=== PATIENT | female | born 1970 | race American Indian/Alaskan Native ===

== ENCOUNTER 2017-07-30 16:28 | Emergency (ER) | payer MEDICAID, OTHER ==
[2017-07-30 16:46] VITALS: BP 129/83
--- NOTE | 2017-07-30 16:46 | EDM.PDOC ---
ED HPI GENERAL MEDICAL PROBLEM - General Chief Complaint: Upper Extremity Injury/Pain Stated Complaint: INJURY VIA [facility] Time Seen by Provider: 07/30/17 16:30 Source of Information: Reports: Patient, EMS History Limitations: Reports: No Limitations - History of Present Illness INITIAL COMMENTS - FREE TEXT/NARRATIVE: 46-year-old female who was wrestling around with her daughter, fell forward onto her left shoulder and struck the left side of her face on the floor. She has significant pain in the shoulder and pain with movement so called the ambulance. She received 1.75 mg of Dilaudid in route per EMS. Onset: Sudden Duration: Hour(s): (Within the last 2 hours) Location: Reports: Upper Extremity, Left Severity: Moderate Worsens with: Reports: Movement Associated Symptoms: Reports: No Other Symptoms Left Shoulder Pain Score (Numeric/FACES): 5 - Related Data Allergies Allergy/AdvReac Type Severity Reaction Status Date / Time codeine Allergy Pain Verified 12/26/14 18:08 Home Meds: Home Meds Gabapentin [Gabapentin] 1 tab PO TID 12/26/14 [History] traMADol HCl [Tramadol HCl] 1 tab PO Q6H PRN 12/26/14 [History] Buprenorphine HCl/Naloxone HCl [Suboxone 12 mg-3 mg Sl Film] 07/30/17 [History] ClonazePAM [KlonoPIN] 0.5 mg PO ASDIRECTED PRN 07/30/17 [History] Past Medical History [employer] WORK[employer] History: Reports: Psychiatric History: Reports: Anxiety Social & Family History - Tobacco Use Smoking Status *Q: Unknown Ever Smoked Years of Tobacco use: 30 - Caffeine Use Caffeine Use: Reports: Coffee - Recreational Drug Use Recreational Drug Use: Yes Recreational Drug Type: Reports: Marijuana/Hashish Recreational Drug Use Frequency: Socially Recreational Drug Last Use: 12/26/15 Review of Systems - Review of Systems Review Of Systems: See Below Constitutional: Denies: Fever Respiratory: Denies: Shortness of Breath Cardiovascular: Denies: Chest Pain (She's been drinking) Skin: Denies: Bruising Neurological: Denies: Paresthesia ED EXAM, GENERAL - Physical Exam Exam: See Below Exam Limited By: No Limitations General Appearance: Alert, No Apparent Distress, Other (Intoxicated) Neck: Supple Respiratory/Chest: No Respiratory Distress, Lungs Clear Extremities: Other (Exam is otherwise limited to the extremities. The left clavicle has some tenderness to palpation laterally but no crepitus or deformity. Shoulder moves freely passively with some discomfort. It is not dislocated. Elbow and wrist is nontender.) Course - Vital Signs Last Recorded V/S: Last Vital Signs Temp 97.7 F 07/30/17 16:37 Pulse 90 07/30/17 16:37 Resp 18 07/30/17 16:37 BP 129/83 07/30/17 16:37 Pulse Ox 94 L 07/30/17 16:37 - Orders/Labs/Meds Orders: Active Orders 24 hr Category Date Time Status Humerus Lt [CR] Stat Exams 07/30/17 16:33 Taken Shoulder Comp Lt [CR] Stat Exams 07/30/17 16:33 Taken DME for Discharge [COMM] Stat Oth 07/30/17 17:04 Ordered - Re-Assessments/Exams Free Text/Narrative Re-Assessment/Exam: 07/30/17 16:46 A left shoulder and left humerus x-ray was obtained. 07/30/17 17:08 X-rays were negative. Patient was given a sling to use sparingly for pain control as well as 15 tramadol. Also encouraged to take an anti-inflammatory on a regular basis. Recheck with orthopedics next week if not improving satisfactorily. Departure - Departure Time of Disposition: 17:23 Disposition: Home, Self-Care 01 Condition: Good Clinical Impression: Contusion, shoulder /upper arm - Discharge Information Instructions: Shoulder Pain, [id number] Referrals: PCP,None [Primary Care Provider] - Forms: ED Department Discharge Care Plan Goals: Take a regular dose of ibuprofen or naproxen, and add tramadol if needed for extra pain control. Wear the sling for comfort but try to resume regular activity with your arm as soon as possible. Recheck with orthopedics next week if not improving satisfactorily. - My Orders Last 24 Hours: My Active Orders 07/30/17 16:33 Humerus Lt [CR] Stat Shoulder Comp Lt [CR] Stat 07/30/17 17:04 DME for Discharge [COMM] Stat - Assessment/Plan Last 24 Hours: My Active Orders 07/30/17 16:33 Humerus Lt [CR] Stat Shoulder Comp Lt [CR] Stat 07/30/17 17:04 DME for Discharge [COMM] Stat
--- NOTE | 2017-07-31 08:38 | CR ---
Shoulder Comp Lt HISTORY: fall, pain FINDINGS: No acute fracture or dislocation is identified. Bony architecture and joint spaces are preserved. A C joint is not widened. Soft tissues are unremarkable. IMPRESSION: No acute left shoulder abnormality identified.
--- NOTE | 2017-07-31 08:38 | CR ---
Humerus Lt HISTORY: fall, pain FINDINGS: No acute fracture or dislocation is identified. Bony architecture and joint spaces are preserved. S oft tissues are unremarkable. IMPRESSION: No acute left humerus abnormality identified.
== END 2017-07-30 17:23 | disposition home or self-care (01) ==
LOC: JP.ED 16:28
DX: S40.012A Contusion of left shoulder, initial encounter (principal); W18.00XA Striking against unspecified object with subsequent fall, initial encounter; Y93.72 Activity, wrestling; Z88.5 Allergy status to narcotic agent
CPT/HCPCS: 73030-26-LT; 73030-LT; 73060-26-LT; 73060-LT; 99284

== ENCOUNTER 2021-03-11 04:01 | Emergency (ER) | payer MEDICAID ==
[2021-03-11 04:37] VITALS: BP 133/69; PULSE 88
[2021-03-11] MEDS ORDERED: ClonazePAM 0.5 MG Tab PO ONE (05:04)
--- NOTE | 2021-03-11 05:11 | EDM.PDOCBH ---
ED HPI GENERAL MEDICAL PROBLEM - General Chief Complaint: Behavioral/Psych Stated Complaint: ANXIETY Time Seen by Provider: 03/11/21 04:28 Source of Information: Reports: Patient History Limitations: Reports: No Limitations - History of Present Illness INITIAL COMMENTS - FREE TEXT/NARRATIVE: Darlene is a 50-year-old female presenting to the ED for evaluation of anxiety and panic attacks. The patient is requesting a prescription for Klonopin 1 mg to help with her anxiety. She states that she has been on this medicine for 6 years. I did review her [facility] chart and it does not appear that it is on her medication list, however, she has on Suboxone and is on a controlled substance agreement with [facility]. The patient has been having more anxiety since finding out her mother has lung cancer and then her significant other was notified that his mother has stomach cancer. They both appeared in the ER tonight for anxiety. I did explain to her that since she is on a controlled substance agreement I would not be prescribing any benzodiazepines or controlled substances for her and she would need to get this from her [facility] provider [facility]. I would provide her with a single dose of Klonopin 0.5 mg in the ER though. She does have a history of polysubstance abuse including THC and methamphetamine. He was not either able or willing to provide us with a urine drug screen. - Related Data Allergies Allergy/AdvReac Type Severity Reaction Status Date / Time codeine Allergy Pain Unverified 02/09/21 13:44 Home Meds: Home Meds Gabapentin 800 mg PO QID 12/26/14 [History] Buprenorphine HCl/Naloxone HCl [Suboxone 12 mg-3 mg Sl Film] 1 film SL TID 07/30/17 [History] Acetaminophen [Tylenol] 650 mg PO Q6H PRN 02/09/21 [History] Albuterol Sulfate [Proair Hfa] 1 puff INH Q4H PRN 02/09/21 [History] Budesonide/Formoterol Fumarate [Budesonide-Formoterol 160-4.5] 2 puff INH BID 02/09/21 [History] Glecaprevir-Pibrentasvir (Mavyret) 300 mg PO DAILY 02/09/21 [History] Levothyroxine 75 mcg PO DAILY 02/09/21 [History] Naloxone HCl [Narcan] 1 spray SIMONE ONETIME 02/09/21 [History] Past Medical History HEENT History: Reports: Impaired 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: Psychiatric History: Reports: Anxiety Hematologic History: Reports: Other (See Below) Other Hematologic History: HEP C TREATMENT - Infectious Disease History Infectious Disease History: Reports: Chicken Pox Social & Family History - Tobacco Use Tobacco Use Status *Q: Current Every Day Tobacco User Years of Tobacco use: 30 Packs/Tins Daily: 0.5 - Caffeine Use Caffeine Use: Reports: Coffee - Recreational Drug Use Recreational Drug Use: No ED ROS GENERAL - Review of Systems Review Of Systems: See Below Constitutional: Reports: No Symptoms HEENT: Reports: No Symptoms Respiratory: Reports: No Symptoms Cardiovascular: Reports: No Symptoms Endocrine: Reports: No Symptoms GI/Abdominal: Reports: No Symptoms : Reports: No Symptoms Musculoskeletal: Reports: No Symptoms Skin: Reports: No Symptoms Neurological: Reports: No Symptoms Psychiatric: Reports: Anxiety, Depression, Mood Lability. Denies: Homicidal Ideation, Suicidal Ideation Hematologic/Lymphatic: Reports: No Symptoms Immunologic: Reports: No Symptoms ED EXAM, BEHAVIORAL HEALTH - Physical Exam Exam: See Below Exam Limited By: No Limitations General Appearance: Alert, Anxious, Lethargic (Patient appeared to be under the influence of some substance) Eye Exam: Bilateral Eye: EOMI, PERRL (Pupils are 2 mm but reactive to light) Throat/Mouth: Normal Inspection, Normal Voice, No Airway Compromise Head: Atraumatic, Normocephalic Neck: Normal Inspection, Supple Respiratory/Chest: No Respiratory Distress, Lungs Clear, Normal Breath Sounds Cardiovascular: Normal Peripheral Pulses, Regular Rate, Rhythm, No Murmur GI/Abdominal: Normal Bowel Sounds, Soft, Non-Tender (Female) Exam: Other (Urinary incontinence. The patient urinated in her clothes rather than providing a urine sample.) Neurological: Alert, Normal Cognition, No Motor/Sensory Deficits, Oriented x 3 Psychiatric: Restless, Agitated Skin Exam: Warm, Dry COURSE, BEHAVIORAL HEALTH COMP - Course Vital Signs: Last Vital Signs Temp 36.8 C 03/11/21 04:37 Pulse 88 03/11/21 04:37 Resp 14 03/11/21 04:37 BP 133/69 03/11/21 04:37 Pulse Ox 98 03/11/21 04:37 Orders, Labs, Meds: Active Orders 24 hr Category Date Time Status DRUG SCREEN, URINE [URCHEM] Stat Lab 03/11/21 04:51 Ordered Medications Discontinued Medications Generic Name Dose Route Start Last Admin Trade Name Mary PRN Reason Stop Dose Admin Clonazepam 0.5 mg 03/11/21 05:04 Clonazepam 0.5 Mg Tab PO 03/11/21 05:05 ONETIME ONE Discharge vs Psych Eval/Treatment:: 03/11/21 05:13 patient will need to follow-up with her primary provider [facility] for any prescriptions pertaining to benzodiazepines. I will give her a prescription for propranolol which may help with her anxiety. She is instructed to follow-up with [facility]. At this time she is suitable for discharge. Departure - Departure Time of Disposition: 05:14 Disposition: Home, Self-Care 01 Clinical Impression: Anxiety - Discharge Information Instructions: Managing Anxiety, Adult Referrals: [facility] PA-C [Primary Care Provider] - Care Plan Goals: Follow-up with [facility] or her covering provider to discuss management of your anxiety. I have a prescription for you for propranolol 40 mg twice daily. Sepsis Event Note (ED) - Evaluation Sepsis Screening Result: No Definite Risk - Focused Exam Vital Signs: Vital Signs Temp Pulse Resp BP Pulse Ox 03/11/21 04:37 36.8 C 88 14 133/69 98 - Problem List & Annotations (1) Anxiety SNOMED Code(s): 33652930 Code(s): F41.9 - ANXIETY DISORDER, UNSPECIFIED Status: Acute Priority: Medium Current Visit: Yes - Problem List Review Problem List Initiated/Reviewed/Updated: Yes - My Orders Last 24 Hours: My Active Orders 03/11/21 04:51 DRUG SCREEN, URINE [URCHEM] Stat - Assessment/Plan Last 24 Hours: My Active Orders 03/11/21 04:51 DRUG SCREEN, URINE [URCHEM] Stat
== END 2021-03-11 05:20 | disposition home or self-care (01) ==
LOC: JP.ED 04:01
DX: F41.9 Anxiety disorder, unspecified (principal); Z72.0 Tobacco use; Z88.5 Allergy status to narcotic agent; Z79.899 Other long term (current) drug therapy
CPT/HCPCS: 99283; A9270

== ENCOUNTER 2021-03-27 08:00 | Day surgery (SDC) | payer MEDICAID ==
[~2021-03-27 08:00] MED LIST: Midazolam 1 MG/ML 2 ML SDV ONE; Propofol 200 MG/20 ML SDV ONE; fentaNYL 100 MCG/2 ML SDV ONE
[2021-03-27] MEDS ORDERED: Sodium Chloride 0.9% 1,000 ML IV SCH (08:30)
[2021-03-27] MEDS ORDERED: Propofol 200 MG/20 ML SDV ONE (10:12)
[2021-03-27 11:06] VITALS: BP 103/63; PULSE 70
--- NOTE | 2021-03-27 11:14 | OR ---
DATE OF PROCEDURE: 03/27/2021 SURGEON: Ollie Gallardo MD PROCEDURE: Colonoscopy. FINDINGS: Normal colonoscopy. COMPLICATIONS: None. JOY LOADER: None. ANESTHESIA: MAC. PREOPERATIVE DIAGNOSIS: Screening colonoscopy. POSTOPERATIVE DIAGNOSIS: Screening colonoscopy. RISKS: Risks, benefits, alternatives, and limitations including, but not limited to infection, bleeding, perforation, false positives and false negatives were explained to the patient and they wished to proceed. PROCEDURE IN DETAIL: The patient was placed in left lateral decubitus position. Digital rectal exam was performed without abnormality. Scope was introduced and advanced atraumatically to the ileocecal valve. A photo was taken of the appendiceal orifice. The scope was brought back to the ascending, transverse, descending colon, and retroflexed. No evidence of old or new blood. No masses. No polyps. No diverticulosis. No abnormalities on retroflexion. Greater than 8 minutes was spent removing the scope. The prep was acceptable, approximately 90% of luminal surface could be seen. The patient tolerated procedure well. Ollie Gallardo MD /[id number]
== END 2021-03-27 11:16 | disposition home or self-care (01) ==
LOC: JP.SDS 08:00
PROVIDERS: ATTEND Surgery
DX: Z12.11 Encounter for screening for malignant neoplasm of colon (principal); J45.909 Unspecified asthma, uncomplicated; F17.200 Nicotine dependence, unspecified, uncomplicated; Z88.5 Allergy status to narcotic agent; Z01.812 Encounter for preprocedural laboratory examination; Z20.822 Contact with and (suspected) exposure to COVID-19
CPT/HCPCS: 45378; 87635; J2250; J2704; J3010; J7030; U0002

== ENCOUNTER 2021-06-03 17:37 | Inpatient (IN) | payer MEDICAID ==
--- NOTE | 2021-06-03 18:44 | EDM.PDOC ---
ED HPI GENERAL MEDICAL PROBLEM - General Chief Complaint: General Stated Complaint: FEVER, BODY ACHES Time Seen by Provider: 06/03/21 18:32 Source of Information: Reports: Patient History Limitations: Reports: No Limitations - History of Present Illness INITIAL COMMENTS - FREE TEXT/NARRATIVE: [id number] female presenting to the ED with several hour onset of fever, chills, shortness of breath and cough, generalized weakness, and some mild confusion. Patient states that she had COVID-19 last year and received both shots of the Pfizer vaccine for COVID-19. She was in the process of cleaning her house when she had the sudden onset of symptoms. She presents to the ED tachypneic with a respiratory rate of 28 and an SPO2 of 82% on room air. She is a smoker. She denies any nausea or vomiting, headache, chest pain, diarrhea or constipation, urinary symptoms including urgency, frequency, or burning with urination. She has not lost her sense of taste or smell. - Related Data Allergies Allergy/AdvReac Type Severity Reaction Status Date / Time codeine Allergy Abdominal Verified 03/27/21 08:23 Cramps Home Meds: Home Meds Gabapentin 800 mg PO QID 12/26/14 [History] Acetaminophen [Tylenol] 650 mg PO Q6H PRN 02/09/21 [History] Albuterol Sulfate [Proair Hfa] 1 puff INH Q4H PRN 02/09/21 [History] Budesonide/Formoterol Fumarate [Budesonide-Formoterol 160-4.5] 2 puff INH BID 02/09/21 [History] Levothyroxine 75 mcg PO DAILY 02/09/21 [History] Naloxone HCl [Narcan] 1 spray SIMONE ONETIME 02/09/21 [History] Buprenorphine HCl/Naloxone HCl [Buprenorphine-Nalox 8-2Mg Film] 1 film SL TID 06/04/21 [History] Past Medical History HEENT History: Reports: Impaired Vision Respiratory History: Reports: Asthma Gastrointestinal History: Reports: Hiatal Hernia Genitourinary History: Reports: None COMPO CASTER History: Reports: , Spontaneous Psychiatric History: Reports: Anxiety Hematologic History: Reports: Other (See Below) Other Hematologic History: HEP C TREATMENT Dermatologic History: Reports: None, Eczema - Infectious Disease History Infectious Disease History: Reports: Chicken Pox, Hepatitis C, Other (See Below) Other Infectious Disease History: Covid 2019 - Past Surgical History HEENT Surgical History: Reports: Oral Surgery Respiratory Surgical History: Reports: None GI Surgical History: Reports: Appendectomy, EGD Female Surgical History: Reports: Tubal Ligation Dermatological Surgical History: Reports: Skin Biopsy Social & Family History - Family History Family Medical History: No Pertinent Family History - Caffeine Use Caffeine Use: Reports: Coffee ED ROS GENERAL - Review of Systems Review Of Systems: See Below Constitutional: Reports: Fever, Chills, Malaise, Weakness, Fatigue HEENT: Reports: No Symptoms Respiratory: Reports: Shortness of Breath, Cough Cardiovascular: Reports: No Symptoms Endocrine: Reports: Fatigue GI/Abdominal: Reports: No Symptoms : Reports: No Symptoms Musculoskeletal: Reports: Muscle Pain Skin: Reports: No Symptoms Neurological: Reports: Confusion (Mild confusion) Psychiatric: Reports: No Symptoms Hematologic/Lymphatic: Reports: No Symptoms Immunologic: Reports: No Symptoms ED EXAM, GENERAL - Physical Exam Exam: See Below Exam Limited By: No Limitations General Appearance: Alert, Anxious, Moderate Distress Eye Exam: Bilateral Eye: EOMI, PERRL Course - Vital Signs Last Recorded V/S: Last Vital Signs Temp 35.9 C L 06/04/21 19:00 Pulse 78 06/04/21 19:00 Resp 94 H 06/04/21 19:00 BP 112/45 L 06/04/21 19:00 Pulse Ox 3 L 06/04/21 19:00 - Orders/Labs/Meds Orders: Active Orders 24 hr Category Date Time Status CULTURE BLOOD [BC] Urgent Lab 06/03/21 20:16 Results Medication Orders Acetaminophen (Acetaminophen 325 Mg Tab) 650 mg PO Q4H PRN PRN Reason: Pain (Mild 1-3)/fever Albuterol (Albuterol 0.083% 2.5 Mg/3 Ml Neb Soln) 2.5 mg NEB Q4H PRN PRN Reason: Shortness Of Breath/wheezing Albuterol/Ipratropium (Albuterol/Ipratropium 3.0-0.5 Mg/3 Ml Neb Soln) 3 ml NEB QIDRT LORIE Griggs Admin: 06/04/21 20:59 Dose: 3 ml Documented by: Admin: 06/04/21 14:25 Dose: 3 ml Documented by: Admin: 06/04/21 10:24 Dose: 3 ml Documented by: SARAH Benzonatate (Benzonatate 100 Mg Cap) 100 mg PO Q8H PRN PRN Reason: Cough Buprenorphine/Naloxone (Buprenorphine/Naloxone 8-2 Mg Tab.Sl) 1 tab SL TID [facility] Last Admin: 06/04/21 20:59 Dose: 1 tab Documented by: Admin: 06/04/21 14:35 Dose: 1 tab Documented by: JAMEY Gabapentin (Gabapentin 400 Mg Cap) 800 mg PO QID [facility] Last Admin: 06/04/21 20:59 Dose: 800 mg Documented by: Admin: 06/04/21 15:00 Dose: 800 mg Documented by: JAMEY Guaifenesin/Dextromethorphan (Guaifenesin/Dextromethorphan 100-10 Mg/5 Ml Soln 10 Ml Cup) 10 ml PO Q4H PRN PRN Reason: Cough Last Admin: 06/04/21 14:58 Dose: 10 ml Documented by: Admin: 06/04/21 10:53 Dose: 10 ml Documented by: JAMEY Azithromycin 500 mg/ Sodium (Chloride) 250 mls @ 250 mls/hr IV Q24H [facility] Last Admin: 06/03/21 23:02 Dose: 250 mls/hr Documented by: TESSA Ceftriaxone Sodium 2 gm/ (Sodium Chloride) 50 mls @ 100 mls/hr IV Q24H [facility] Last Admin: 06/04/21 21:05 Dose: 100 mls/hr Documented by: TESSA Ibuprofen (Ibuprofen 600 Mg Tab) 600 mg PO Q6H PRN PRN Reason: Pain/Fever Lactobacillus Rhamnosus (Lactobacillus Rhamnosus Gg (Probiotic) Cap) 1 cap PO BID [facility] Last Admin: 06/04/21 20:59 Dose: 1 cap Documented by: Admin: 06/04/21 08:01 Dose: 1 cap Documented by: Admin: 06/03/21 23:14 Dose: Not Given Documented by: TESSA Levothyroxine Sodium (Levothyroxine 25 Mcg Tab) 75 mcg PO ACBREAKFAST [facility] Last Admin: 06/04/21 08:01 Dose: 75 mcg Documented by: JAMEY Lorazepam (Lorazepam 2 Mg/Ml Sdv) 0.5 mg IVPUSH Q4H PRN PRN Reason: Nausea/Vomiting Magnesium Hydroxide (Magnesium Hydroxide 400 Mg/5 Ml Susp 30 Ml Cup) 30 ml PO Q12H PRN PRN Reason: Constipation Methylprednisolone Sodium Succinate (Methylprednisolone Sodium Succinate 40 Mg/1 Ml Sdv) 40 mg IVPUSH Q8H [facility] Last Admin: 06/04/21 21:00 Dose: 40 mg Documented by: Admin: 06/04/21 13:04 Dose: 40 mg Documented by: Admin: 06/04/21 05:04 Dose: 40 mg Documented by: TESSA Mometasone Furoate/Formoterol Fumar (Formoterol/Mometasone 200-5 Mcg 8.8 Gm Inhaler) 2 puff IH BIDRT [facility] Last Admin: 06/04/21 21:00 Dose: 2 puff Documented by: Admin: 06/04/21 08:07 Dose: 2 puff Documented by: JAMEY Ondansetron HCl (Ondansetron 4 Mg/2 Ml Sdv) 4 mg IV Q6H PRN PRN Reason: Nausea/Vomiting Ondansetron HCl (Ondansetron 4 Mg Tab.Dis) 4 mg PO Q6H PRN PRN Reason: Nausea able to take PO Senna/Docusate Sodium (Docusate Sodium/Sennosides 50-8.6 Mg Tab) 1 tab PO BID PRN PRN Reason: Constipation Labs: Laboratory Tests 06/03/21 06/03/21 06/03/21 Range/Units 18:42 18:56 18:56 WBC 14.6 H (4.5-11.0) K/uL RBC 4.96 (3.30-5.50) M/uL Hgb 12.0 (12.0-15.0) g/dL Hct 39.4 (36.0-48.0) % MCV 79 L (80-98) fL MCH 24 L (27-31) pg MCHC 31 L (32-36) % Plt Count 193 (150-400) K/uL Neut % (Auto) 89.4 H (36-66) % Lymph % (Auto) 5.3 L (24-44) % [place] % (Auto) 4.7 (2-6) % Eos % (Auto) 0.5 L (2-4) % Baso % (Auto) 0.1 (0-1) % D-Dimer, Quantitative 531.69 H (0.0-500.0) ng/mL Sodium (140-148) mmol/L Potassium (3.6-5.2) mmol/L Chloride (100-108) mmol/L Carbon Dioxide (21-32) mmol/L Anion Gap (5.0-14.0) mmol/L BUN (7-18) mg/dL Creatinine (0.6-1.0) mg/dL Est Cr Clr Drug Dosing mL/min Estimated GFR (MDRD) (>60) Glucose (74-106) mg/dL Lactic Acid (0.4-2.0) mmol/L Calcium (8.5-10.1) mg/dL Ferritin (8-388) ng/ml Total Bilirubin (0.2-1.0) mg/dL AST (15-37) U/L ALT (12-78) U/L Alkaline Phosphatase (46-116) U/L Lactate Dehydrogenase (82-234) U/L C-Reactive Protein (0.0-0.3) mg/dL Total Protein (6.4-8.2) g/dL Albumin (3.4-5.0) g/dL Globulin (2.3-3.5) g/dL Albumin/Globulin Ratio (1.2-2.2) Procalcitonin ng/mL Influenza Type A RNA Negative (NEGATIVE) RSV RNA (INAAT) Negative (NEGATIVE) Influenza Type B RNA Negative (NEGATIVE) SARS-CoV-2 RNA (MEGHAN) Negative (NEGATIVE) 06/03/21 06/03/21 06/03/21 Range/Units 18:56 18:56 18:56 WBC (4.5-11.0) K/uL RBC (3.30-5.50) M/uL Hgb (12.0-15.0) g/dL Hct (36.0-48.0) % MCV (80-98) fL MCH (27-31) pg MCHC (32-36) % Plt Count (150-400) K/uL Neut % (Auto) (36-66) % Lymph % (Auto) (24-44) % [place] % (Auto) (2-6) % Eos % (Auto) (2-4) % Baso % (Auto) (0-1) % D-Dimer, Quantitative (0.0-500.0) ng/mL Sodium 140 (140-148) mmol/L Potassium 4.1 (3.6-5.2) mmol/L Chloride 103 (100-108) mmol/L Carbon Dioxide 30 (21-32) mmol/L Anion Gap 6.9 (5.0-14.0) mmol/L BUN 13 (7-18) mg/dL Creatinine 0.9 (0.6-1.0) mg/dL Est Cr Clr Drug Dosing 70.01 mL/min Estimated GFR (MDRD) > 60 (>60) Glucose 105 (74-106) mg/dL Lactic Acid 1.5 (0.4-2.0) mmol/L Calcium 7.8 L (8.5-10.1) mg/dL Ferritin 16 (8-388) ng/ml Total Bilirubin 0.2 (0.2-1.0) mg/dL AST 11 L (15-37) U/L ALT 16 (12-78) U/L Alkaline Phosphatase 100 (46-116) U/L Lactate Dehydrogenase 140 (82-234) U/L C-Reactive Protein 0.68 H (0.0-0.3) mg/dL Total Protein 6.8 (6.4-8.2) g/dL Albumin 3.2 L (3.4-5.0) g/dL Globulin 3.6 H (2.3-3.5) g/dL Albumin/Globulin Ratio 0.9 L (1.2-2.2) Procalcitonin 0.64 ng/mL Influenza Type A RNA (NEGATIVE) RSV RNA (INAAT) (NEGATIVE) Influenza Type B RNA (NEGATIVE) SARS-CoV-2 RNA (MEGHAN) (NEGATIVE) Meds: Medications Generic Name Dose Route Start Last Admin Trade Name Freq PRN Reason Stop Dose Admin Acetaminophen 650 mg 06/03/21 22:28 Acetaminophen 325 Mg Tab PO Q4H PRN Pain (Mild 1-3)/fever Albuterol 2.5 mg 06/03/21 22:28 Albuterol 0.083% 2.5 Mg/3 Ml Neb Soln NEB Q4H PRN Shortness Of Breath/wheezing Albuterol/Ipratropium 3 ml 06/04/21 11:00 06/04/21 20:59 Albuterol/Ipratropium 3.0-0.5 Mg/3 Ml Neb Soln NEB 3 ml QIDRT LORIE Administration Benzonatate 100 mg 06/03/21 22:28 Benzonatate 100 Mg Cap PO Q8H PRN Cough Buprenorphine/Naloxone 1 tab 06/04/21 14:15 06/04/21 20:59 Buprenorphine/Naloxone 8-2 Mg Tab.Sl SL 1 tab TID LORIE Administration Gabapentin 800 mg 06/04/21 16:00 06/04/21 20:59 Gabapentin 400 Mg Cap PO 800 mg QID LORIE Administration Guaifenesin/Dextromethorphan 10 ml 06/03/21 22:28 06/04/21 14:58 Guaifenesin/Dextromethorphan 100-10 Mg/5 Ml Soln 10 Ml Cup PO 10 ml Q4H PRN Administration Cough Azithromycin 500 mg/ Sodium 250 mls @ 250 mls/hr 06/03/21 23:00 06/03/21 23:02 Chloride IV 250 mls/hr Q24H LORIE Administration Ceftriaxone Sodium 2 gm/ 50 mls @ 100 mls/hr 06/04/21 21:00 06/04/21 21:05 Sodium Chloride IV 100 mls/hr Q24H LORIE Administration Ibuprofen 600 mg 06/03/21 22:28 Ibuprofen 600 Mg Tab PO Q6H PRN Pain/Fever Lactobacillus Rhamnosus 1 cap 06/03/21 22:28 06/04/21 20:59 Lactobacillus Rhamnosus Gg (Probiotic) Cap PO 1 cap BID LORIE Administration Levothyroxine Sodium 75 mcg 06/04/21 07:30 06/04/21 08:01 Levothyroxine 25 Mcg Tab PO 75 mcg ACBREAKFAST LORIE Administration Lorazepam 0.5 mg 06/03/21 22:28 Lorazepam 2 Mg/Ml Sdv IVPUSH Q4H PRN Nausea/Vomiting Magnesium Hydroxide 30 ml 06/03/21 22:28 Magnesium Hydroxide 400 Mg/5 Ml Susp 30 Ml Cup PO Q12H PRN Constipation Methylprednisolone Sodium Succinate 40 mg 06/04/21 05:00 06/04/21 21:00 Methylprednisolone Sodium Succinate 40 Mg/1 Ml Sdv IVPUSH 40 mg Q8H LORIE Administration Mometasone Furoate/Formoterol Fumar 2 puff 06/04/21 07:30 06/04/21 21:00 Formoterol/Mometasone 200-5 Mcg 8.8 Gm Inhaler IH 2 puff BIDRT LORIE Administration Ondansetron HCl 4 mg 06/03/21 22:28 Ondansetron 4 Mg/2 Ml Sdv IV Q6H PRN Nausea/Vomiting Ondansetron HCl 4 mg 06/03/21 22:28 Ondansetron 4 Mg Tab.Dis PO Q6H PRN Nausea able to take PO Senna/Docusate Sodium 1 tab 06/03/21 22:28 Docusate Sodium/Sennosides 50-8.6 Mg Tab PO BID PRN Constipation Discontinued Medications Generic Name Dose Route Start Last Admin Trade Name Freq PRN Reason Stop Dose Admin Albuterol/Ipratropium 3 ml 06/03/21 22:28 06/04/21 05:35 Albuterol/Ipratropium 3.0-0.5 Mg/3 Ml Neb Soln NEB 3 ml QID LORIE Administration Ceftriaxone Sodium 2 gm/ 50 mls @ 100 mls/hr 06/03/21 20:03 06/03/21 22:29 Sodium Chloride IV 06/03/21 20:32 Not Given ONETIME ONE Sodium Chloride 1,000 mls @ 125 mls/hr 06/03/21 22:28 06/04/21 07:08 Normal Saline IV 125 mls/hr ASDIRECTED LORIE Administration Sodium Chloride 1,000 mls @ 999 mls/hr 06/03/21 22:28 06/03/21 22:55 Normal Saline IV 06/03/21 23:28 999 mls/hr .BOLUS ONE Administration Methylprednisolone Sodium Succinate 125 mg 06/03/21 22:28 06/03/21 23:02 Methylprednisolone Sodium Succinate 125 Mg/2 Ml Sdv IVPUSH 06/03/21 22:29 125 mg ONETIME ONE Administration - Radiology Interpretation Free Text/Narrative:: I reviewed the patient's chest x-ray showing a left lower lobe infiltrate. - Re-Assessments/Exams Free Text/Narrative Re-Assessment/Exam: 06/04/21 21:13 reviewed the patient's labs showing leukocyte count of 14.6 with 89% neutrophils, hemoglobin of 12.0 and a platelet count of 193,000. Her comprehensive metabolic panel is significant for sodium 140, potassium 4.1, chloride 103, bicarbonate of 30, BUN of 13 with a creatinine of 0.9 and glucose 105. Her calcium is 7.8. AST and ALT were negative. She is negative for Covid, RSV, and influenza. Her procalcitonin is noted to be elevated at 0.64. Lactate is negative. Patient has a left lower lobe infiltrate on x-ray and is hypoxic this is consistent with acute pneumonia and respiratory failure. We obtained blood cultures x2 and initiated the patient on antibiotics with ceftriaxone 2 g IV. I discussed the case with Dr. Joseph to arrange for admission of the patient for further care. Departure - Departure Time of Disposition: 20:05 Disposition: Admitted As Inpatient 66 Clinical Impression: Acute respiratory failure with hypoxia Left lower lobe pneumonia Qualifiers: Pneumonia type: due to unspecified organism Qualified Code(s): J18.9 - Pneumonia, unspecified organism - Discharge Information - Problem List & Annotations (1) Acute respiratory failure with hypoxia SNOMED Code(s): 61088087, 011944591 Code(s): J96.01 - ACUTE RESPIRATORY FAILURE WITH HYPOXIA Status: Acute Priority: High Current Visit: Yes (2) Left lower lobe pneumonia SNOMED Code(s): 204269948 Code(s): J18.9 - PNEUMONIA, UNSPECIFIED ORGANISM Status: Acute Priority: High Current Visit: Yes Qualifiers: Pneumonia type: due to unspecified organism Qualified Code(s): J18.9 - Pneumonia, unspecified organism - Problem List Review Problem List Initiated/Reviewed/Updated: Yes - My Orders Last 24 Hours: My Active Orders 06/03/21 20:16 CULTURE BLOOD [BC] Urgent - Assessment/Plan Last 24 Hours: My Active Orders 06/03/21 20:16 CULTURE BLOOD [BC] Urgent
[2021-06-03 19:24] LABS: CORONAVIRUS COVID-19 NAA NEGATIVE (NEGATIVE)
--- NOTE | 2021-06-03 20:37 | PCM.HP.2 ---
H&P History of Present Illness - General Date of Service: 06/03/21 Admit Problem/Dx: Admission Diagnosis/Problem Admission Diagnosis/Problem Pneumonia Source of Information: Provider. No: Patient History Limitations: Reports: Altered Mental Status (somnolent) - History of Present Illness Initial Comments - Free Text/Narative: CC: fever, SOB, cough HPI: Darlene presents to the emergency room tonight with cough, fever, shortness of breath and weakness. She is very somnolent at this time and unable to provide any reliable history. History is gathered from emergency room personnel. She reported to them fairly sudden onset of symptoms this afternoon. She had been feeling well prior to this. It is not clear if she measured a fever at home or just felt feverish. She has an emesis bag with brownish sputum and it and some emesis. She mentioned to the nursing staff that she used meth 3 days ago. Despite multiple attempts to gather further information I am unable t o because of her significant somnolence. Work-up in the emergency room revealed leukocytosis and hypoxia. Chest x-ray suggested a left lower lung pneumonia. She is currently requiring 4 L of supplemental oxygen. She has received ceftriaxone. She will be admitted for further management. - Related Data Allergies/Adverse Reactions: Allergies Allergy/AdvReac Type Severity Reaction Status Date / Time codeine Allergy Abdominal Verified 03/27/21 08:23 Cramps Home Medications: Home Meds Gabapentin 800 mg PO QID 12/26/14 [History] Buprenorphine HCl/Naloxone HCl [Suboxone 12 mg-3 mg Sl Film] 1 film SL TID 07/30/17 [History] Acetaminophen [Tylenol] 650 mg PO Q6H PRN 02/09/21 [History] Albuterol Sulfate [Proair Hfa] 1 puff INH Q4H PRN 02/09/21 [History] Budesonide/Formoterol Fumarate [Budesonide-Formoterol 160-4.5] 2 puff INH BID 02/09/21 [History] Levothyroxine 75 mcg PO DAILY 02/09/21 [History] Naloxone HCl [Narcan] 1 spray SIMONE ONETIME 02/09/21 [History] Past Medical History HEENT History: Reports: Impaired Vision Respiratory History: Reports: Asthma Gastrointestinal History: Reports: Hiatal Hernia Genitourinary History: Reports: None [employer]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: , Spontaneous Psychiatric History: Reports: Anxiety Hematologic History: Reports: Other (See Below) Other Hematologic History: HEP C TREATMENT Dermatologic History: Reports: None, Eczema - Infectious Disease History Infectious Disease History: Reports: Chicken Pox, Hepatitis C, Other (See Below) Other Infectious Disease History: Covid 2019 - Past Surgical History HEENT Surgical History: Reports: Oral Surgery Respiratory Surgical History: Reports: None GI Surgical History: Reports: Appendectomy, EGD Female Surgical History: Reports: Tubal Ligation Dermatological Surgical History: Reports: Skin Biopsy Social & Family History - Family History Family Medical History: No Pertinent Family History - Tobacco Use Tobacco Use Status *Q: Current Every Day Tobacco User Years of Tobacco use: 40 Packs/Tins Daily: 0.5 - Caffeine Use Caffeine Use: Reports: Coffee - Recreational Drug Use Recreational Drug Use: Yes Drug Use in Last 12 Months: Yes Recreational Drug Type: Reports: Methamphetamine Recreational Drug Use Frequency: Socially H&P Review of Systems - Review of Systems: Review Of Systems: Unable To Obtain Reason Not Obtained: Patient is quite lethargic Exam - Exam Exam: See Below - Vital Signs Vital Signs: Last Vital Signs Temp 38.1 C 06/03/21 18:14 Pulse 121 H 06/03/21 18:14 Resp 16 06/03/21 18:14 BP 108/66 06/03/21 18:14 Pulse Ox 92 L 06/03/21 18:14 Weight: 104.8 kg - Exam Quality Assessment: Supplemental Oxygen General: Lethargic. No: Alert, Cooperative HEENT: Conjunctiva Clear. No: Mucosa Moist & [place] (Dry), Scleral Icterus Neck: Supple, Trachea Midline. No: Lymphadenopathy Lungs: Normal Respiratory Effort, Crackles (Left mid and lower lung), Rhonchi (Mild upper respiratory), Wheezing (Left side with mid and end expiration) Cardiovascular: Regular Rhythm, Tachycardia. No: Systolic Murmur GI/Abdominal Exam: Normal Bowel Sounds, Soft, Non-Tender, No Distention, No Mass Extremities: No Pedal Edema. No: Joint Swelling, Increased Warmth Peripheral Pulses: 2+: Dorsalis Pedis (L), Dorsalis Pedis (R) Skin: Warm, Dry. No: Rash Neuro Extensive - Mental Status: Slow Response to Commands. No: Alert, Oriented x3 Neuro Extensive - Motor, Sensory, Reflexes: No: Abnormal Motor, Tremor Psychiatric: No: Alert, Agitated - Patient Data Lab Results Last 24 hrs: Laboratory Results - last 24 hr 06/03/21 06/03/21 06/03/21 Range/Units 18:42 18:56 18:56 WBC 14.6 H (4.5-11.0) K/uL RBC 4.96 (3.30-5.50) M/uL Hgb 12.0 (12.0-15.0) g/dL Hct 39.4 (36.0-48.0) % MCV 79 L (80-98) fL MCH 24 L (27-31) pg MCHC 31 L (32-36) % Plt Count 193 (150-400) K/uL Neut % (Auto) 89.4 H (36-66) % Lymph % (Auto) 5.3 L (24-44) % [place] % (Auto) 4.7 (2-6) % Eos % (Auto) 0.5 L (2-4) % Baso % (Auto) 0.1 (0-1) % D-Dimer, Quantitative 531.69 H (0.0-500.0) ng/mL Sodium (140-148) mmol/L Potassium (3.6-5.2) mmol/L Chloride (100-108) mmol/L Carbon Dioxide (21-32) mmol/L Anion Gap (5.0-14.0) mmol/L BUN (7-18) mg/dL Creatinine (0.6-1.0) mg/dL Est Cr Clr Drug Dosing mL/min Estimated GFR (MDRD) (>60) Glucose (74-106) mg/dL Lactic Acid (0.4-2.0) mmol/L Calcium (8.5-10.1) mg/dL Ferritin (8-388) ng/ml Total Bilirubin (0.2-1.0) mg/dL AST (15-37) U/L ALT (12-78) U/L Alkaline Phosphatase (46-116) U/L Lactate Dehydrogenase (82-234) U/L C-Reactive Protein (0.0-0.3) mg/dL Total Protein (6.4-8.2) g/dL Albumin (3.4-5.0) g/dL Globulin (2.3-3.5) g/dL Albumin/Globulin Ratio (1.2-2.2) Procalcitonin ng/mL Influenza Type A RNA Negative (NEGATIVE) RSV RNA (INAAT) Negative (NEGATIVE) Influenza Type B RNA Negative (NEGATIVE) SARS-CoV-2 RNA (MEGHAN) Negative (NEGATIVE) 06/03/21 06/03/21 06/03/21 Range/Units 18:56 18:56 18:56 WBC (4.5-11.0) K/uL RBC (3.30-5.50) M/uL Hgb (12.0-15.0) g/dL Hct (36.0-48.0) % MCV (80-98) fL MCH (27-31) pg MCHC (32-36) % Plt Count (150-400) K/uL Neut % (Auto) (36-66) % Lymph % (Auto) (24-44) % [place] % (Auto) (2-6) % Eos % (Auto) (2-4) % Baso % (Auto) (0-1) % D-Dimer, Quantitative (0.0-500.0) ng/mL Sodium 140 (140-148) mmol/L Potassium 4.1 (3.6-5.2) mmol/L Chloride 103 (100-108) mmol/L Carbon Dioxide 30 (21-32) mmol/L Anion Gap 6.9 (5.0-14.0) mmol/L BUN 13 (7-18) mg/dL Creatinine 0.9 (0.6-1.0) mg/dL Est Cr Clr Drug Dosing 70.01 mL/min Estimated GFR (MDRD) > 60 (>60) Glucose 105 (74-106) mg/dL Lactic Acid 1.5 (0.4-2.0) mmol/L Calcium 7.8 L (8.5-10.1) mg/dL Ferritin 16 (8-388) ng/ml Total Bilirubin 0.2 (0.2-1.0) mg/dL AST 11 L (15-37) U/L ALT 16 (12-78) U/L Alkaline Phosphatase 100 (46-116) U/L Lactate Dehydrogenase 140 (82-234) U/L C-Reactive Protein 0.68 H (0.0-0.3) mg/dL Total Protein 6.8 (6.4-8.2) g/dL Albumin 3.2 L (3.4-5.0) g/dL Globulin 3.6 H (2.3-3.5) g/dL Albumin/Globulin Ratio 0.9 L (1.2-2.2) Procalcitonin 0.64 ng/mL Influenza Type A RNA (NEGATIVE) RSV RNA (INAAT) (NEGATIVE) Influenza Type B RNA (NEGATIVE) SARS-CoV-2 RNA (MEGHAN) (NEGATIVE) Result Diagrams: 06/03/21 18:56 06/03/21 18:56 Imaging Impressions Last 24 hrs: Chest x-ray-image personally reviewed-there is evidence for a left lower lung pneumonia. No obvious mass or effusion. Heart size is normal. Sepsis Event Note - Evaluation Sepsis Screening Result: No Definite Risk - Focused Exam Vital Signs: Vital Signs Temp Pulse Resp BP Pulse Ox 06/03/21 18:14 38.1 C 121 H 16 108/66 92 L *Q Meaningful Use (ADM) - VTE Risk Assess *Q Each Risk Factor Represents 1 Point: Age 41 - 59 years, Obesity ( BMI > 25 kg/m2), Serious lung disease including pneumonia Total Score 1 Point Risk Factors: 3 Each Risk Factor Represents 2 Points: None Total Score 2 Point Risk Factors: 0 Each Risk Factor Represents 3 Points: None Total Score 3 Point Risk Factors: 0 Each Risk Factor Represents 5 Points: None Total Score 5 Point Risk Factors: 0 Venous Thromboembolism Risk Factor Score *Q: 3 - Problem List (1) Left lower lobe pneumonia SNOMED Code(s): 154418906 ICD Code: J18.9 - PNEUMONIA, UNSPECIFIED ORGANISM Status: Acute Current Visit: Yes Qualifiers: Pneumonia type: due to unspecified organism Qualified Code(s): J18.9 - Pneumonia, unspecified organism (2) Acute respiratory failure with hypoxia SNOMED Code(s): 57793864, 407908965 ICD Code: J96.01 - ACUTE RESPIRATORY FAILURE WITH HYPOXIA Status: Acute Current Visit: Yes (3) Obesity (BMI 30-39.9) SNOMED Code(s): 004844333, 427235155 ICD Code: E66.9 - OBESITY, UNSPECIFIED Status: Chronic Current Visit: Yes Problem List Initiated/Reviewed/Updated: Yes Orders Last 24hrs: Active Orders 24 hr Category Date Time Status Patient Status Manage Transfer [TRANSFER] Routine ADT 06/03/21 20:23 Ordered Chest 1V Frontal [CR] Stat Exams 06/03/21 18:42 Taken CULTURE BLOOD [BC] Urgent Lab 06/03/21 20:05 Received CULTURE BLOOD [BC] Urgent Lab 06/03/21 20:16 Received cefTRIAXone [Rocephin] 2 gm Med 06/03/21 20:03 Active Sodium Chloride 0.9% [Normal Saline AdvBag] 50 ml IV ONETIME Blood Culture x2 Reflex Set [OM.PC] Urgent Oth 06/03/21 20:02 Ordered Resuscitation Status Routine Resus Stat 06/03/21 20:24 Ordered Medication Orders Ceftriaxone Sodium 2 gm/ (Sodium Chloride) 50 mls @ 100 mls/hr IV ONETIME ONE Stop: 06/03/21 20:32 Assessment/Plan Comment:: ASSESSMENT AND PLAN - Left lower lobe pneumonia-complicated by acute respiratory failure with hypoxia. Sudden onset of symptoms this afternoon. She has hypoxic and requiring supplemental oxygen. No further history able to be gathered due to her somnolence. There is evidence for wheezing and she does have a history of asthma. -Antibiotic coverage with ceftriaxone and a azithromycin -IV steroids -Supplement oxygen, wean as able -Pulse oximetry -Symptomatic management of cough and fever Somnolence-probably multifactorial with acute infection. Patient did also admit to using meth about 3 days ago when she could be in her washout period. She does take large doses of gabapentin as well as Suboxone which could be contributing as well. -Hold Suboxone and gabapentin until she wakes up Tobacco dependence- -Encourage cessation when she is more awake and interactive Obesity with BMI of 37- Maintenance issues - -DVT prophylaxis-mechanical -GI prophylaxis-not indicated -Nutrition-regular diet as tolerated -Parra catheter-not indicated CODE STATUS -presumed to be full code Admission justification -this patient will be admitted for inpatient services and is medically appropriate meeting medical necessity for inpatient admission as outlined in my documentation. I reasonably expect the patient will require inpatient services that span a period time over 2 midnights. I reasonably expect this patient to be discharged or transferred within 96 hours [facility]. Disposition -I anticipate discharge home after the hospital stay Primary care physician -Sue Joseph M.D. - Mortality Measure Prognosis:: Good
[2021-06-03] MEDS: cefTRIAXone 2 GM in Sodium Chloride 0.9% 50 ML IV ONE ×2 (21:12→22:29)
[2021-06-03] MEDS ORDERED: Sodium Chloride 0.9% 1,000 ML IV ONE (22:28)
[2021-06-03] MEDS ORDERED: Ibuprofen 600 MG Tab PO PRN (22:28)
[2021-06-03] MEDS ORDERED: Ondansetron 4 MG/2 ML SDV IV PRN (22:28)
[2021-06-03] MEDS ORDERED: Magnesium Hydroxide 400 MG/5 ML Susp 30 ML Cup PO PRN (22:28)
[2021-06-03] MEDS ORDERED: Ondansetron 4 MG Tab.DIS PO PRN (22:28)
[2021-06-03] MEDS ORDERED: Acetaminophen 325 MG Tab PO PRN (22:28)
[2021-06-03] MEDS ORDERED: LORazepam 2 MG/ML SDV IVPUSH PRN (22:28)
[2021-06-03] MEDS ORDERED: Benzonatate 100 MG Cap PO PRN (22:28)
[2021-06-03] MEDS ORDERED: methylPREDNISolone Sodium Succinate 125 MG/2 ML SDV IVPUSH ONE (22:28)
[2021-06-03] MEDS ORDERED: Albuterol 0.083% 2.5 MG/3 ML Neb Soln NEB PRN (22:28)
[2021-06-03] MEDS: Sodium Chloride 0.9% 1,000 ML IV SCH (22:56)
[2021-06-03] MEDS: Albuterol/Ipratropium 3.0-0.5 MG/3 ML Neb Soln NEB SCH (22:56)
[2021-06-03] MEDS: Azithromycin 500 MG in Sodium Chloride 0.9% 250 ML IV SCH (23:02)
[2021-06-03] MEDS: Lactobacillus Rhamnosus GG (Probiotic) Cap PO SCH (23:14)
[2021-06-04] MEDS: methylPREDNISolone Sodium Succinate 40 MG/1 ML SDV IVPUSH SCH ×3 (05:04→21:00)
[2021-06-04] MEDS: Albuterol/Ipratropium 3.0-0.5 MG/3 ML Neb Soln NEB SCH ×4 (05:35→20:59)
[2021-06-04] MEDS: Sodium Chloride 0.9% 1,000 ML IV SCH (07:08)
[2021-06-04] MEDS: Lactobacillus Rhamnosus GG (Probiotic) Cap PO SCH ×2 (08:01→20:59)
[2021-06-04] MEDS: Levothyroxine 25 MCG Tab PO SCH (08:01)
[2021-06-04] MEDS: Formoterol/Mometasone 200-5 MCG 8.8 GM Inhaler IH SCH ×2 (08:07→21:00)
[2021-06-04] MEDS ORDERED: Formoterol/Mometasone 200-5 MCG 8.8 GM Inhaler IH SCH (09:00)
[2021-06-04] MEDS: guaiFENesin/Dextromethorphan 100-10 MG/5 ML Soln 10 ML Cup PO PRN ×2 (10:53→14:58)
--- NOTE | 2021-06-04 13:40 | PCM.PN ---
- General Info Date of Service: 06/04/21 Subjective Update: Ms. Osborne has improved since admission. She is more alert and interactive. Continues to require supplemental oxygen and experiences shortness of breath wi th activity. Cough which for the most part has been nonproductive. Functional Status: Reports: Tolerating Diet, Ambulating, Urinating - Review of Systems General: Reports: Weakness, Fatigue. Denies: Fever, Chills Pulmonary: Reports: Shortness of Breath, Cough, Wheezing. Denies: Pleuritic Chest Pain, Sputum, Hemoptysis Cardiovascular: Reports: Dyspnea on Exertion. Denies: Chest Pain, Palpitations, Orthopnea, PND, Edema, Lightheadedness Gastrointestinal: Reports: No Symptoms Genitourinary: Reports: No Symptoms - Patient Data Vitals - Most Recent: Last Vital Signs Temp 97.1 F 06/04/21 10:34 Pulse 98 06/04/21 10:34 Resp 18 06/04/21 10:34 BP 140/95 H 06/04/21 10:34 Pulse Ox 99 06/04/21 10:34 Weight - Most Recent: 231 lb 0.711 oz I&O - Last 24 Hours: Intake & Output 06/03/21 06/04/21 06/04/21 22:59 06:59 14:59 Intake Total 806 600 Output Total 450 100 Balance 356 500 Lab Results Last 24 Hours: Laboratory Results - last 24 hr 06/03/21 06/03/21 06/03/21 Range/Units 18:42 18:56 18:56 WBC 14.6 H (4.5-11.0) K/uL RBC 4.96 (3.30-5.50) M/uL Hgb 12.0 (12.0-15.0) g/dL Hct 39.4 (36.0-48.0) % MCV 79 L (80-98) fL MCH 24 L (27-31) pg MCHC 31 L (32-36) % Plt Count 193 (150-400) K/uL Neut % (Auto) 89.4 H (36-66) % Lymph % (Auto) 5.3 L (24-44) % [place] % (Auto) 4.7 (2-6) % Eos % (Auto) 0.5 L (2-4) % Baso % (Auto) 0.1 (0-1) % D-Dimer, Quantitative 531.69 H (0.0-500.0) ng/mL Sodium (140-148) mmol/L Potassium (3.6-5.2) mmol/L Chloride (100-108) mmol/L Carbon Dioxide (21-32) mmol/L Anion Gap (5.0-14.0) mmol/L BUN (7-18) mg/dL Creatinine (0.6-1.0) mg/dL Est Cr Clr Drug Dosing mL/min Estimated GFR (MDRD) (>60) Glucose (74-106) mg/dL Lactic Acid (0.4-2.0) mmol/L Calcium (8.5-10.1) mg/dL Ferritin (8-388) ng/ml Total Bilirubin (0.2-1.0) mg/dL AST (15-37) U/L ALT (12-78) U/L Alkaline Phosphatase (46-116) U/L Lactate Dehydrogenase (82-234) U/L C-Reactive Protein (0.0-0.3) mg/dL Total Protein (6.4-8.2) g/dL Albumin (3.4-5.0) g/dL Globulin (2.3-3.5) g/dL Albumin/Globulin Ratio (1.2-2.2) Procalcitonin ng/mL Influenza Type A RNA Negative (NEGATIVE) RSV RNA (INAAT) Negative (NEGATIVE) Influenza Type B RNA Negative (NEGATIVE) SARS-CoV-2 RNA (MEGHAN) Negative (NEGATIVE) 06/03/21 06/03/21 06/03/21 Range/Units 18:56 18:56 18:56 WBC (4.5-11.0) K/uL RBC (3.30-5.50) M/uL Hgb (12.0-15.0) g/dL Hct (36.0-48.0) % MCV (80-98) fL MCH (27-31) pg MCHC (32-36) % Plt Count (150-400) K/uL Neut % (Auto) (36-66) % Lymph % (Auto) (24-44) % [place] % (Auto) (2-6) % Eos % (Auto) (2-4) % Baso % (Auto) (0-1) % D-Dimer, Quantitative (0.0-500.0) ng/mL Sodium 140 (140-148) mmol/L Potassium 4.1 (3.6-5.2) mmol/L Chloride 103 (100-108) mmol/L Carbon Dioxide 30 (21-32) mmol/L Anion Gap 6.9 (5.0-14.0) mmol/L BUN 13 (7-18) mg/dL Creatinine 0.9 (0.6-1.0) mg/dL Est Cr Clr Drug Dosing 70.01 mL/min Estimated GFR (MDRD) > 60 (>60) Glucose 105 (74-106) mg/dL Lactic Acid 1.5 (0.4-2.0) mmol/L Calcium 7.8 L (8.5-10.1) mg/dL Ferritin 16 (8-388) ng/ml Total Bilirubin 0.2 (0.2-1.0) mg/dL AST 11 L (15-37) U/L ALT 16 (12-78) U/L Alkaline Phosphatase 100 (46-116) U/L Lactate Dehydrogenase 140 (82-234) U/L C-Reactive Protein 0.68 H (0.0-0.3) mg/dL Total Protein 6.8 (6.4-8.2) g/dL Albumin 3.2 L (3.4-5.0) g/dL Globulin 3.6 H (2.3-3.5) g/dL Albumin/Globulin Ratio 0.9 L (1.2-2.2) Procalcitonin 0.64 ng/mL Influenza Type A RNA (NEGATIVE) RSV RNA (INAAT) (NEGATIVE) Influenza Type B RNA (NEGATIVE) SARS-CoV-2 RNA (MEGHAN) (NEGATIVE) 06/04/21 06/04/21 Range/Units 04:15 04:15 WBC 22.1 H (4.5-11.0) K/uL RBC 4.75 (3.30-5.50) M/uL Hgb 11.3 L (12.0-15.0) g/dL Hct 37.8 (36.0-48.0) % MCV 80 (80-98) fL MCH 24 L (27-31) pg MCHC 30 L (32-36) % Plt Count 204 (150-400) K/uL Neut % (Auto) (36-66) % Lymph % (Auto) (24-44) % [place] % (Auto) (2-6) % Eos % (Auto) (2-4) % Baso % (Auto) (0-1) % D-Dimer, Quantitative (0.0-500.0) ng/mL Sodium 139 L (140-148) mmol/L Potassium 4.1 (3.6-5.2) mmol/L Chloride 105 (100-108) mmol/L Carbon Dioxide 29 (21-32) mmol/L Anion Gap 9.1 (5.0-14.0) mmol/L BUN 10 (7-18) mg/dL Creatinine 0.7 (0.6-1.0) mg/dL Est Cr Clr Drug Dosing 90.01 mL/min Estimated GFR (MDRD) > 60 (>60) Glucose 147 H (74-106) mg/dL Lactic Acid (0.4-2.0) mmol/L Calcium 7.5 L (8.5-10.1) mg/dL Ferritin (8-388) ng/ml Total Bilirubin (0.2-1.0) mg/dL AST (15-37) U/L ALT (12-78) U/L Alkaline Phosphatase (46-116) U/L Lactate Dehydrogenase (82-234) U/L C-Reactive Protein (0.0-0.3) mg/dL Total Protein (6.4-8.2) g/dL Albumin (3.4-5.0) g/dL Globulin (2.3-3.5) g/dL Albumin/Globulin Ratio (1.2-2.2) Procalcitonin ng/mL Influenza Type A RNA (NEGATIVE) RSV RNA (INAAT) (NEGATIVE) Influenza Type B RNA (NEGATIVE) SARS-CoV-2 RNA (MEGHAN) (NEGATIVE) Med Orders - Current: Current Medications Acetaminophen (Acetaminophen 325 Mg Tab) 650 mg PO Q4H PRN PRN Reason: Pain (Mild 1-3)/fever Albuterol (Albuterol 0.083% 2.5 Mg/3 Ml Neb Soln) 2.5 mg NEB Q4H PRN PRN Reason: Shortness Of Breath/wheezing Albuterol/Ipratropium (Albuterol/Ipratropium 3.0-0.5 Mg/3 Ml Neb Soln) 3 ml NEB QIDRT [facility] Last Admin: 06/04/21 10:24 Dose: 3 ml Documented by: Benzonatate (Benzonatate 100 Mg Cap) 100 mg PO Q8H PRN PRN Reason: Cough Guaifenesin/Dextromethorphan (Guaifenesin/Dextromethorphan 100-10 Mg/5 Ml Soln 10 Ml Cup) 10 ml PO Q4H PRN PRN Reason: Cough Last Admin: 06/04/21 10:53 Dose: 10 ml Documented by: Azithromycin 500 mg/ Sodium (Chloride) 250 mls @ 250 mls/hr IV Q24H [facility] Last Admin: 06/03/21 23:02 Dose: 250 mls/hr Documented by: Ceftriaxone Sodium 2 gm/ (Sodium Chloride) 50 mls @ 100 mls/hr IV Q24H [facility] Ibuprofen (Ibuprofen 600 Mg Tab) 600 mg PO Q6H PRN PRN Reason: Pain/Fever Lactobacillus Rhamnosus (Lactobacillus Rhamnosus Gg (Probiotic) Cap) 1 cap PO BID [facility] Last Admin: 06/04/21 08:01 Dose: 1 cap Documented by: Levothyroxine Sodium (Levothyroxine 25 Mcg Tab) 75 mcg PO ACBREAKFAST [facility] Last Admin: 06/04/21 08:01 Dose: 75 mcg Documented by: Lorazepam (Lorazepam 2 Mg/Ml Sdv) 0.5 mg IVPUSH Q4H PRN PRN Reason: Nausea/Vomiting Magnesium Hydroxide (Magnesium Hydroxide 400 Mg/5 Ml Susp 30 Ml Cup) 30 ml PO Q12H PRN PRN Reason: Constipation Methylprednisolone Sodium Succinate (Methylprednisolone Sodium Succinate 40 Mg/1 Ml Sdv) 40 mg IVPUSH Q8H [facility] Last Admin: 06/04/21 13:04 Dose: 40 mg Documented by: Mometasone Furoate/Formoterol Fumar (Formoterol/Mometasone 200-5 Mcg 8.8 Gm Inh aler) 2 puff IH BIDRT [facility] Last Admin: 06/04/21 08:07 Dose: 2 puff Documented by: Ondansetron HCl (Ondansetron 4 Mg/2 Ml Sdv) 4 mg IV Q6H PRN PRN Reason: Nausea/Vomiting Ondansetron HCl (Ondansetron 4 Mg Tab.Dis) 4 mg PO Q6H PRN PRN Reason: Nausea able to take PO Senna/Docusate Sodium (Docusate Sodium/Sennosides 50-8.6 Mg Tab) 1 tab PO BID PRN PRN Reason: Constipation Discontinued Medications Albuterol/Ipratropium (Albuterol/Ipratropium 3.0-0.5 Mg/3 Ml Neb Soln) 3 ml NEB QID [facility] Last Admin: 06/04/21 05:35 Dose: 3 ml Documented by: Ceftriaxone Sodium 2 gm/ (Sodium Chloride) 50 mls @ 100 mls/hr IV ONETIME ONE Stop: 06/03/21 20:32 Last Admin: 06/03/21 22:29 Dose: Not Given Documented by: Sodium Chloride (Normal Saline) 1,000 mls @ 125 mls/hr IV ASDIRECTED [facility] Last Admin: 06/04/21 07:08 Dose: 125 mls/hr Documented by: Sodium Chloride (Normal Saline) 1,000 mls @ 999 mls/hr IV .BOLUS ONE Stop: 06/03/21 23:28 Last Admin: 06/03/21 22:55 Dose: 999 mls/hr Documented by: Methylprednisolone Sodium Succinate (Methylprednisolone Sodium Succinate 125 Mg/2 Ml Sdv) 125 mg IVPUSH ONETIME ONE Stop: 06/03/21 22:29 Last Admin: 06/03/21 23:02 Dose: 125 mg Documented by: - Exam Quality Assessment: Supplemental Oxygen, DVT Prophylaxis General: Alert, Oriented, Cooperative, Moderate Distress Lungs: Decreased Breath Sounds, Rales, Wheezing. No: Crackles, Rhonchi Cardiovascular: Regular Rate, Regular Rhythm, No Murmurs GI/Abdominal Exam: Soft, Non-Tender, No Organomegaly, No Distention Extremities: Non-Tender, No Pedal Edema - Patient Data Lab Results Last 24 hrs: Laboratory Results - last 24 hr 06/03/21 06/03/21 06/03/21 Range/Units 18:42 18:56 18:56 WBC 14.6 H (4.5-11.0) K/uL RBC 4.96 (3.30-5.50) M/uL Hgb 12.0 (12.0-15.0) g/dL Hct 39.4 (36.0-48.0) % MCV 79 L (80-98) fL MCH 24 L (27-31) pg MCHC 31 L (32-36) % Plt Count 193 (150-400) K/uL Neut % (Auto) 89.4 H (36-66) % Lymph % (Auto) 5.3 L (24-44) % [place] % (Auto) 4.7 (2-6) % Eos % (Auto) 0.5 L (2-4) % Baso % (Auto) 0.1 (0-1) % D-Dimer, Quantitative 531.69 H (0.0-500.0) ng/mL Sodium (140-148) mmol/L Potassium (3.6-5.2) mmol/L Chloride (100-108) mmol/L Carbon Dioxide (21-32) mmol/L Anion Gap (5.0-14.0) mmol/L BUN (7-18) mg/dL Creatinine (0.6-1.0) mg/dL Est Cr Clr Drug Dosing mL/min Estimated GFR (MDRD) (>60) Glucose (74-106) mg/dL Lactic Acid (0.4-2.0) mmol/L Calcium (8.5-10.1) mg/dL Ferritin (8-388) ng/ml Total Bilirubin (0.2-1.0) mg/dL AST (15-37) U/L ALT (12-78) U/L Alkaline Phosphatase (46-116) U/L Lactate Dehydrogenase (82-234) U/L C-Reactive Protein (0.0-0.3) mg/dL Total Protein (6.4-8.2) g/dL Albumin (3.4-5.0) g/dL Globulin (2.3-3.5) g/dL Albumin/Globulin Ratio (1.2-2.2) Procalcitonin ng/mL Influenza Type A RNA Negative (NEGATIVE) RSV RNA (INAAT) Negative (NEGATIVE) Influenza Type B RNA Negative (NEGATIVE) SARS-CoV-2 RNA (MEGHAN) Negative (NEGATIVE) 06/03/21 06/03/21 06/03/21 Range/Units 18:56 18:56 18:56 WBC (4.5-11.0) K/uL RBC (3.30-5.50) M/uL Hgb (12.0-15.0) g/dL Hct (36.0-48.0) % MCV (80-98) fL MCH (27-31) pg MCHC (32-36) % Plt Count (150-400) K/uL Neut % (Auto) (36-66) % Lymph % (Auto) (24-44) % [place] % (Auto) (2-6) % Eos % (Auto) (2-4) % Baso % (Auto) (0-1) % D-Dimer, Quantitative (0.0-500.0) ng/mL Sodium 140 (140-148) mmol/L Potassium 4.1 (3.6-5.2) mmol/L Chloride 103 (100-108) mmol/L Carbon Dioxide 30 (21-32) mmol/L Anion Gap 6.9 (5.0-14.0) mmol/L BUN 13 (7-18) mg/dL Creatinine 0.9 (0.6-1.0) mg/dL Est Cr Clr Drug Dosing 70.01 mL/min Estimated GFR (MDRD) > 60 (>60) Glucose 105 (74-106) mg/dL Lactic Acid 1.5 (0.4-2.0) mmol/L Calcium 7.8 L (8.5-10.1) mg/dL Ferritin 16 (8-388) ng/ml Total Bilirubin 0.2 (0.2-1.0) mg/dL AST 11 L (15-37) U/L ALT 16 (12-78) U/L Alkaline Phosphatase 100 (46-116) U/L Lactate Dehydrogenase 140 (82-234) U/L C-Reactive Protein 0.68 H (0.0-0.3) mg/dL Total Protein 6.8 (6.4-8.2) g/dL Albumin 3.2 L (3.4-5.0) g/dL Globulin 3.6 H (2.3-3.5) g/dL Albumin/Globulin Ratio 0.9 L (1.2-2.2) Procalcitonin 0.64 ng/mL Influenza Type A RNA (NEGATIVE) RSV RNA (INAAT) (NEGATIVE) Influenza Type B RNA (NEGATIVE) SARS-CoV-2 RNA (MEGHAN) (NEGATIVE) 06/04/21 06/04/21 Range/Units 04:15 04:15 WBC 22.1 H (4.5-11.0) K/uL RBC 4.75 (3.30-5.50) M/uL Hgb 11.3 L (12.0-15.0) g/dL Hct 37.8 (36.0-48.0) % MCV 80 (80-98) fL MCH 24 L (27-31) pg MCHC 30 L (32-36) % Plt Count 204 (150-400) K/uL Neut % (Auto) (36-66) % Lymph % (Auto) (24-44) % [place] % (Auto) (2-6) % Eos % (Auto) (2-4) % Baso % (Auto) (0-1) % D-Dimer, Quantitative (0.0-500.0) ng/mL Sodium 139 L (140-148) mmol/L Potassium 4.1 (3.6-5.2) mmol/L Chloride 105 (100-108) mmol/L Carbon Dioxide 29 (21-32) mmol/L Anion Gap 9.1 (5.0-14.0) mmol/L BUN 10 (7-18) mg/dL Creatinine 0.7 (0.6-1.0) mg/dL Est Cr Clr Drug Dosing 90.01 mL/min Estimated GFR (MDRD) > 60 (>60) Glucose 147 H (74-106) mg/dL Lactic Acid (0.4-2.0) mmol/L Calcium 7.5 L (8.5-10.1) mg/dL Ferritin (8-388) ng/ml Total Bilirubin (0.2-1.0) mg/dL AST (15-37) U/L ALT (12-78) U/L Alkaline Phosphatase (46-116) U/L Lactate Dehydrogenase (82-234) U/L C-Reactive Protein (0.0-0.3) mg/dL Total Protein (6.4-8.2) g/dL Albumin (3.4-5.0) g/dL Globulin (2.3-3.5) g/dL Albumin/Globulin Ratio (1.2-2.2) Procalcitonin ng/mL Influenza Type A RNA (NEGATIVE) RSV RNA (INAAT) (NEGATIVE) Influenza Type B RNA (NEGATIVE) SARS-CoV-2 RNA (MEGHAN) (NEGATIVE) Result Diagrams: 06/04/21 04:15 06/04/21 04:15 Sepsis Event Note - Evaluation Sepsis Screening Result: No Definite Risk - Focused Exam Vital Signs: Vital Signs Temp Pulse Resp BP Pulse Ox 06/04/21 10:34 97.1 F 98 18 140/95 H 99 06/04/21 10:24 98 06/04/21 07:50 96.4 F L 77 16 98/61 92 L 06/04/21 07:42 90 L 06/04/21 02:22 98.8 F 79 20 107/62 92 L - Problem List Review Problem List Initiated/Reviewed/Updated: Yes - My Orders Last 24 Hours: My Active Orders 06/04/21 13:35 Convert IV to Saline Lock [OM.PC] Routine 06/05/21 05:00 BASIC METABOLIC PANEL,BMP [CHEM] Timed CBC WITH AUTO DIFF [HEME] Timed MAGNESIUM [CHEM] Timed - Plan Plan:: ASSESSMENT AND PLAN - Left lower lobe pneumonia-complicated by acute respiratory failure with hypoxia. She has hypoxic and requiring supplemental oxygen. Improved from admission, more alert and interactive -Antibiotic coverage with ceftriaxone and a azithromycin -IV steroids -Supplement oxygen, wean as able -Pulse oximetry -Symptomatic management of cough and fever Somnolence-resolved Tobacco dependence- -Encourage cessation Obesity with BMI of 37- Maintenance issues - -DVT prophylaxis-mechanical -GI prophylaxis-not indicated -Nutrition-regular diet as tolerated -Parra catheter-not indicated CODE STATUS -full code Admission justification -this patient will be admitted for inpatient services and is medically appropriate meeting medical necessity for inpatient admission as outlined in my documentation. I reasonably expect the patient will require inpatient services that span a period time over 2 midnights. I reasonably expect this patient to be discharged or transferred within 96 hours [facility]. Disposition -I anticipate discharge home after the hospital stay Primary care physician -Sue ALMONTE
[2021-06-04] MEDS ORDERED: Non-Formulary Medication 1 Each (Buprenorphine Hcl/Naloxone Hcl [Suboxone 12 Mg-3 Mg Sl Fi SL SCH (14:00)
[2021-06-04] MEDS: Buprenorphine/Naloxone 8-2 MG Tab.SL SL SCH ×2 (14:35→20:59)
[2021-06-04] MEDS: Gabapentin 400 MG Cap PO SCH ×2 (15:00→20:59)
[2021-06-04] MEDS ORDERED: cefTRIAXone 2 GM in Sodium Chloride 0.9% 50 ML IV SCH (21:00)
[2021-06-04] MEDS: Azithromycin 500 MG in Sodium Chloride 0.9% 250 ML IV SCH (22:13)
[2021-06-04] MEDS ORDERED: diphenhydrAMINE 25 MG Cap PO PRN (22:24)
[2021-06-05] MEDS: methylPREDNISolone Sodium Succinate 40 MG/1 ML SDV IVPUSH SCH (05:02)
[2021-06-05] MEDS: Gabapentin 400 MG Cap PO SCH ×2 (05:46→10:27)
[2021-06-05] MEDS: Formoterol/Mometasone 200-5 MCG 8.8 GM Inhaler IH SCH (07:27)
[2021-06-05] MEDS: Albuterol/Ipratropium 3.0-0.5 MG/3 ML Neb Soln NEB SCH ×2 (07:27→10:49)
[2021-06-05] MEDS: Levothyroxine 25 MCG Tab PO SCH (07:43)
[2021-06-05] MEDS: Lactobacillus Rhamnosus GG (Probiotic) Cap PO SCH (09:17)
[2021-06-05] MEDS: Buprenorphine/Naloxone 8-2 MG Tab.SL SL SCH (09:17)
[2021-06-05 10:40] VITALS: BP 132/72; PULSE 78
--- NOTE | 2021-06-05 10:46 | CR ---
CHEST: Portable 06/03/2021 at 7:24 PM CLINICAL HISTORY:Dyspnea and hypoxia COMPARISON:None FINDINGS: Heart size and pulmonary vascularity are normal. There is patchy infiltrate in the left lower lobe. There is also some linear atelectasis. Impression: Left lower lobe pneumonic infiltrate.
--- NOTE | 2021-06-05 12:41 | PCM.DCSUM1 ---
Discharge Summary - Hospital Course Brief History: Ms. Osborne is a 50-year-old woman who was admitted through the emergency department with weakness, lethargy, shortness of breath, and cough, secondary to left lung pneumonia. - Discharge Data Discharge Date: 06/05/21 Discharge Disposition: Home, Self-Care 01 Condition: Poor - Referral to Home Health Primary Care Physician: PCP None - Discharge Diagnosis/Problem(s) (1) Left lower lobe pneumonia SNOMED Code(s): 705311396 ICD Code: J18.9 - PNEUMONIA, UNSPECIFIED ORGANISM Status: Acute Priority: High Current Visit: Yes Qualifiers: Pneumonia type: due to unspecified organism Qualified Code(s): J18.9 - Pneumonia, unspecified organism (2) Acute respiratory failure with hypoxia SNOMED Code(s): 08864120, 742836959 ICD Code: J96.01 - ACUTE RESPIRATORY FAILURE WITH HYPOXIA Status: Acute Priority: High Current Visit: Yes - Patient Summary/Data Hospital Course: Ms. Osborne presented to the emergency room with cough, fever, shortness of breath and weakness. She was very somnolent and unable to provide any reliable history. History was gathered from emergency room personnel. She reported to them fairly sudden onset of symptoms. She mentioned to the nursing staff that she used meth 3 days ago. Work-up in the emergency room revealed leukocytosis and hypoxia. Chest x-ray suggested a left lower lung pneumonia and she was found to have significant elevation in her white blood cell count. There was no evidence of active sepsis on initial evaluation. She was found to be very hypoxic and did require supplemental oxygen while in the emergency department and during most of her hospital stay. Blood cultures were obtained in the emergency department and she was started on IV antibiotic therapy with ceftr iaxone and azithromycin. Over the next 2 days of her hospital stay she did experience improvement in symptoms. On the day of discharge her white blood cell count remained significantly elevated. When seen on the day of discharge she was adamant about being discharged home. I recommended to her that she stay for further hospitalization with IV antibiotic therapy. I explained potential complications of early discharge including incompletely treated pneumonia that potentially could become worse again resulting in the need for rehospitalization and possible respiratory failure. She explained that she understood these recommendations but was still very adamant about being discharged home. Oxygen titration was performed prior to discharge and she had adequate oxygenation's and saturations on room air and will not require home oxygen. She will be discharged home on oral levofloxacin 750 mg daily for an additional 5 days as well as prednisone 40 mg daily for an additional 4 days. Activity will be as tolerated and she will resume her usual diet. She is instructed to return if she develops increasing shortness of breath fever or weakness. Follow-up appointment will be scheduled with her primary care provider within 1 week. - Patient Instructions Diet: Usual Diet as Tolerated Activity: As Tolerated Other/Special Instructions: Please schedule follow-up appointment with primary care provider within 1 week. - Discharge Plan *PRESCRIPTION DRUG MONITORING PROGRAM REVIEWED*: No *COPY OF PRESCRIPTION DRUG MONITORING REPORT IN PATIENT BALDEV: No Prescriptions/Med Rec: levoFLOXacin [Levaquin] 750 mg PO DAILY #5 tab predniSONE [Prednisone] 40 mg PO DAILY #8 tablet Home Medications: Home Meds Gabapentin 800 mg PO QID 12/26/14 [History] Acetaminophen [Tylenol] 650 mg PO Q6H PRN 02/09/21 [History] Albuterol Sulfate [Proair Hfa] 1 puff INH Q4H PRN 02/09/21 [History] Budesonide/Formoterol Fumarate [Budesonide-Formoterol 160-4.5] 2 puff INH BID 02/09/21 [History] Levothyroxine 75 mcg PO DAILY 02/09/21 [History] Naloxone HCl [Narcan] 1 spray SIMONE ONETIME 02/09/21 [History] Buprenorphine HCl/Naloxone HCl [Buprenorphine-Nalox 8-2Mg Film] 1 film SL TID 06/04/21 [History] levoFLOXacin [Levaquin] 750 mg PO DAILY #5 tab 06/05/21 [Rx] predniSONE [Prednisone] 40 mg PO DAILY #8 tablet 06/05/21 [Rx] Patient Handouts: Community-Acquired Pneumonia, Adult, [id number] - Discharge Summary/Plan Comment DC Time >30 min.: No Total # of Minutes for Discharge Time: 20 - Patient Data Vitals - Most Recent: Last Vital Signs Temp 97.8 F 06/05/21 10:39 Pulse 78 06/05/21 10:39 Resp 18 06/05/21 10:39 BP 132/72 06/05/21 10:39 Pulse Ox 97 06/05/21 10:39 Weight - Most Recent: 231 lb I&O - Last 24 hours: Intake & Output 06/04/21 06/05/21 06/05/21 22:59 06:59 14:59 Intake Total 950 Output Total 250 Balance 950 -250 Lab Results - Last 24 hrs: Laboratory Results - last 24 hr 06/05/21 06/05/21 Range/Units 04:25 04:25 WBC 18.7 H (4.5-11.0) K/uL RBC 4.38 (3.30-5.50) M/uL Hgb 10.6 L (12.0-15.0) g/dL Hct 35.2 L (36.0-48.0) % MCV 80 (80-98) fL MCH 24 L (27-31) pg MCHC 30 L (32-36) % Plt Count 204 (150-400) K/uL Neut % (Auto) 91.4 H (36-66) % Lymph % (Auto) 6.3 L (24-44) % [place] % (Auto) 2.3 (2-6) % Eos % (Auto) 0.0 L (2-4) % Baso % (Auto) 0.0 (0-1) % Sodium 141 (140-148) mmol/L Potassium 4.0 (3.6-5.2) mmol/L Chloride 106 (100-108) mmol/L Carbon Dioxide 28 (21-32) mmol/L Anion Gap 7.0 (5.0-14.0) mmol/L BUN 12 (7-18) mg/dL Creatinine 0.6 (0.6-1.0) mg/dL Est Cr Clr Drug Dosing 105.01 mL/min Estimated GFR (MDRD) > 60 (>60) Glucose 140 H (74-106) mg/dL Calcium 7.8 L (8.5-10.1) mg/dL Magnesium 1.9 (1.8-2.4) mg/dL CARTER Results - Last 24 hrs: Microbiology 06/03/21 20:16 Aerobic Blood Culture - Preliminary Blood - Venous - Lab Draw NO GROWTH AFTER 1 DAY Anaerobic Blood Culture - Preliminary NO GROWTH AFTER 1 DAY 06/03/21 20:05 Aerobic Blood Culture - Preliminary Blood - Arm, Right NO GROWTH AFTER 1 DAY Anaerobic Blood Culture - Preliminary NO GROWTH AFTER 1 DAY Med Orders - Current: Current Medications Acetaminophen (Acetaminophen 325 Mg Tab) 650 mg PO Q4H PRN PRN Reason: Pain (Mild 1-3)/fever Albuterol (Albuterol 0.083% 2.5 Mg/3 Ml Neb Soln) 2.5 mg NEB Q4H PRN PRN Reason: Shortness Of Breath/wheezing Albuterol/Ipratropium (Albuterol/Ipratropium 3.0-0.5 Mg/3 Ml Neb Soln) 3 ml NEB QIDRT [facility] Last Admin: 06/05/21 10:49 Dose: 3 ml Documented by: Benzonatate (Benzonatate 100 Mg Cap) 100 mg PO Q8H PRN PRN Reason: Cough Buprenorphine/Naloxone (Buprenorphine/Naloxone 8-2 Mg Tab.Sl) 1 tab SL TID [facility] Last Admin: 06/05/21 09:17 Dose: 1 tab Documented by: Diphenhydramine HCl (Diphenhydramine 25 Mg Cap) 25 mg PO BEDTIME PRN PRN Reason: Sleep Last Admin: 06/05/21 00:21 Dose: 25 mg Documented by: Gabapentin (Gabapentin 400 Mg Cap) 800 mg PO QID [facility] Last Admin: 06/05/21 10:27 Dose: 800 mg Documented by: Guaifenesin/Dextromethorphan (Guaifenesin/Dextromethorphan 100-10 Mg/5 Ml Soln 10 Ml Cup) 10 ml PO Q4H PRN PRN Reason: Cough Last Admin: 06/04/21 14:58 Dose: 10 ml Documented by: Azithromycin 500 mg/ Sodium (Chloride) 250 mls @ 250 mls/hr IV Q24H [facility] Last Admin: 06/04/21 22:13 Dose: 250 mls/hr Documented by: Ceftriaxone Sodium 2 gm/ (Sodium Chloride) 50 mls @ 100 mls/hr IV Q24H [facility] Last Admin: 06/04/21 21:05 Dose: 100 mls/hr Documented by: Ibuprofen (Ibuprofen 600 Mg Tab) 600 mg PO Q6H PRN PRN Reason: Pain/Fever Lactobacillus Rhamnosus (Lactobacillus Rhamnosus Gg (Probiotic) Cap) 1 cap PO BID [facility] Last Admin: 06/05/21 09:17 Dose: 1 cap Documented by: Levothyroxine Sodium (Levothyroxine 25 Mcg Tab) 75 mcg PO ACBREAKFAST [facility] Last Admin: 06/05/21 07:43 Dose: 75 mcg Documented by: Lorazepam (Lorazepam 2 Mg/Ml Sdv) 0.5 mg IVPUSH Q4H PRN PRN Reason: Nausea/Vomiting Magnesium Hydroxide (Magnesium Hydroxide 400 Mg/5 Ml Susp 30 Ml Cup) 30 ml PO Q12H PRN PRN Reason: Constipation Methylprednisolone Sodium Succinate (Methylprednisolone Sodium Succinate 40 Mg/1 Ml Sdv) 40 mg IVPUSH Q8H [facility] Last Admin: 06/05/21 05:02 Dose: 40 mg Documented by: Mometasone Furoate/Formoterol Fumar (Formoterol/Mometasone 200-5 Mcg 8.8 Gm Inhaler) 2 puff IH BIDRT [facility] Last Admin: 06/05/21 07:27 Dose: 2 puff Documented by: Ondansetron HCl (Ondansetron 4 Mg/2 Ml Sdv) 4 mg IV Q6H PRN PRN Reason: Nausea/Vomiting Ondansetron HCl (Ondansetron 4 Mg Tab.Dis) 4 mg PO Q6H PRN PRN Reason: Nausea able to take PO Senna/Docusate Sodium (Docusate Sodium/Sennosides 50-8.6 Mg Tab) 1 tab PO BID PRN PRN Reason: Constipation Discontinued Medications Albuterol/Ipratropium (Albuterol/Ipratropium 3.0-0.5 Mg/3 Ml Neb Soln) 3 ml NEB QID [facility] Last Admin: 06/04/21 05:35 Dose: 3 ml Documented by: Ceftriaxone Sodium 2 gm/ (Sodium Chloride) 50 mls @ 100 mls/hr IV ONETIME ONE Stop: 06/03/21 20:32 Last Admin: 06/03/21 22:29 Dose: Not Given Documented by: Sodium Chloride (Normal Saline) 1,000 mls @ 125 mls/hr IV ASDIRECTED [facility] Last Admin: 06/04/21 07:08 Dose: 125 mls/hr Documented by: Sodium Chloride (Normal Saline) 1,000 mls @ 999 mls/hr IV .BOLUS ONE Stop: 06/03/21 23:28 Last Admin: 06/03/21 22:55 Dose: 999 mls/hr Documented by: Methylprednisolone Sodium Succinate (Methylprednisolone Sodium Succinate 125 Mg/2 Ml Sdv) 125 mg IVPUSH ONETIME ONE Stop: 06/03/21 22:29 Last Admin: 06/03/21 23:02 Dose: 125 mg Documented by: - Exam Quality Assessment: Reports: DVT Prophylaxis General: Reports: Alert, Oriented, Moderate Distress Lungs: Reports: Decreased Breath Sounds, Rhonchi, Wheezing. Denies: Crackles, Rales Cardiovascular: Reports: Regular Rate, Regular Rhythm, No Murmurs GI/Abdominal Exam: Soft, Non-Tender, No Organomegaly, No Distention Extremities: Non-Tender, No Pedal Edema
== END 2021-06-05 14:00 | disposition home or self-care (01) | DRG 193 ==
LOC: JP.ED 17:37 → JP.MS 20:23
PROVIDERS: ADMIT Internal Medicine; ATTEND Hospitalist
DX: J18.9 Pneumonia, unspecified organism (principal); J96.01 Acute respiratory failure with hypoxia; F17.210 Nicotine dependence, cigarettes, uncomplicated; H54.7 Unspecified visual loss; K44.9 Diaphragmatic hernia without obstruction or gangrene; J45.909 Unspecified asthma, uncomplicated; F41.9 Anxiety disorder, unspecified; R40.0 Somnolence; E66.9 Obesity, unspecified; Z68.37 Body mass index [BMI] 37.0-37.9, adult; Z20.822 Contact with and (suspected) exposure to COVID-19; Z86.19 Personal history of other infectious and parasitic diseases; Z88.5 Allergy status to narcotic agent; Z98.51 Tubal ligation status; Z90.49 Acquired absence of other specified parts of digestive tract; Z79.899 Other long term (current) drug therapy; Z79.890 Hormone replacement therapy; Z79.52 Long term (current) use of systemic steroids
CPT/HCPCS: 0241U; 36415; 71045; 71045-26; 80048; 80053; 82728; 83605; 83615; 83735; 84145; 85025; 85027; 85379; 86140; 87040; 94640; 99285-25; A9270-GY; J0456; J0574-GY; J0696; J2920; J2930; J7030; J7050; J7620-GY

== ENCOUNTER 2022-08-31 06:53 | Emergency (ER) | payer MEDICAID ==
[2022-08-31] MEDS ORDERED: Sodium Chloride 0.9% 10 ML Syringe FLUSH PRN (07:02)
[2022-08-31] MEDS ORDERED: Naloxone 0.4 MG/ML SDV IVPUSH PRN (07:05)
[2022-08-31 07:34] LABS: ESTIMATED GFR 77 mL/min (>60)
[2022-08-31] MEDS ORDERED: Pantoprazole 40 MG Vial IVPUSH SCH (07:45)
[2022-08-31] MEDS ORDERED: Naloxone 0.4 MG in Sodium Chloride 0.9% 100 ML IV SCH (08:15)
[2022-08-31] MEDS ORDERED: Flumazenil 0.1 MG/ML 5 ML MDV IVPUSH PRN ×2 (08:39→14:28)
[2022-08-31] MEDS ORDERED: Ondansetron 4 MG/2 ML SDV IVPUSH ONE (14:38)
[2022-08-31 15:37] VITALS: BP 117/71; PULSE 75
== END 2022-08-31 16:42 | disposition home or self-care (01) ==
LOC: JP.ED 06:53
DX: F19.10 Other psychoactive substance abuse, uncomplicated (principal); N93.9 Abnormal uterine and vaginal bleeding, unspecified; E87.29 Other acidosis; G93.89 Other specified disorders of brain; D50.9 Iron deficiency anemia, unspecified; J45.909 Unspecified asthma, uncomplicated; Z88.5 Allergy status to narcotic agent; Z20.822 Contact with and (suspected) exposure to COVID-19
CPT/HCPCS: 36415; 36430; 80053; 80305; 80307; 81001; 81025; 82140; 82800; 83605; 85014; 85018; 85025; 85610; 85730; 86850; 86900; 86901; 86920; 86922; 87635; 93005; 96365; 96374; 96375; 96376; 99284; C9113; J2310; J2405; J3490; P9016; 93010; 99285; U0002